=== PATIENT | male | born 1995 | race Caucasian/White ===

== ENCOUNTER 2022-09-28 00:42 | Emergency (ER) | payer MEDICAID, SELFPAY ==
--- NOTE | 2022-09-28 00:40 | ECG_ITS ---
APPROVED REPORT Exam: Resting ECG HR:64 bpm ECG Measurements Heart Rate 64 AXES MD 128 P 77 QRSd 94 QRS 97 QT 390 T 80 QTc 399 Conclusion SINUS RHYTHM BORDERLINE RIGHT AXIS DEVIATION [QRS AXIS > 90] BORDERLINE ECG UNCONFIRMED REPORT Electronically signed by : Quinn Waters MD 09/28/2022 20:19:15
[2022-09-28 00:42] VITALS: BP 129/76; PULSE 71; RESP 18; TEMP 36.8; O2SAT 98; BMI 23.4
--- NOTE | 2022-09-28 00:47 | XR_ITS ---
PROCEDURE INFORMATION: Exam: XR Chest Exam date and time: 09/28/2022 12:54 AM Age: 27 years old Clinical indication: Angina pectoris; Patient HX: Chest pain x2 hours; Additional info: Cp TECHNIQUE: Imaging protocol: Radiologic exam of the chest. Views: 2 views. COMPARISON: No relevant prior studies available. FINDINGS: Lungs: Unremarkable. No consolidation. Pleural spaces: Unremarkable. No pleural effusion. No pneumothorax. Heart/Mediastinum: Unremarkable. No cardiomegaly. Bones/joints: Unremarkable. IMPRESSION: No acute findings.
[2022-09-28 00:53] LABS: Basophils # 0.1 K/mm3 (0-0.2); Basophils % 1.3 % (0.1-2.0); Eosinophils # 0.3 K/mm3 (0.0-0.4); Eosinophils % 3.6 % (0.1-12.0); Hemoglobin 14.2 g/dL (14.1-18.0); Lymphocytes # 3.3 K/mm3 (0.7-4.5); Mean Corpuscular HGB Conc 32.3 g/dL (31.8-35.4); Mean Corpuscular Volume 92.9 fl (80-94); Mean Platelet Volume 8.6 fl (7.4-10.4); Monocytes # 0.7 K/mm3 (0.1-1.0); Monocytes % 7.6 % (1.7-9.3); Neutrophils # 4.3 K/mm3 (1.8-7.8); Neutrophils % 49.6 % (37.0-80.0); Platelet Count 264 K/mm3 (142-424); Red Blood Count 4.74 M/mm3 (4.60-6.20); Red Cell Distribution Width 14.5 % (11.5-17.5); White Blood Count 8.7 K/mm3 (4.8-10.8)
--- NOTE | 2022-09-28 00:54 | HMH.EDCP ---
Discharge Plan Disposition Chief Complaint: Chest Pain Clinical Impressions Clinical Impression: Atypical chest pain Instructions Patient Instructions: DI for Atypical Chest Pain Discharge ED Provider: Gurdeep Sutton Chest Pain HPI General Chief Complaint: Chest Pain Stated Complaint: CHEST PAIN Time Seen by Provider: 09/28/22 00:54 Mode of Arrival: Ambulatory Source of Information: Patient and Medical Record Limitations: No Limitations Description of Symptoms (Recalled from ER Triage Doc. by RN): pt c/o lt side chest pain radiating down lt arm that started 2 hours ago. History of Present Illness HPI narrative: acute onset of lt sided chest pain MD complaint: chest pain indicative of cardiac Onset (ago): hour(s) Duration: intermittent Pain location: substernal Severity: moderate Quality: sharp Pain radiation: LUE Relieving factors: nothing Risk Factors for CAD: Family Hx of CAD Treatments prior to or on arrival for Cardiac Chest Pain: none OLMAN Score for Non-Stemi Age of Patient: <30 years old Heart Rate: 50-69 bpm Systolic Blood Pressure: 120-139 mmhg Serum Creatinine: 0.40-0.79 mg/dl CHF Killip Class: I-No CHF Other Risk Factors: None Non-Stemi Risk Score: 41 Related Data Allergies Allergy/AdvReac Type Severity Reaction Status Date / Time INGREDIENT: NO KNOWN - NO Allergy Unknown Uncoded 10/18/17 15:13 KNOWN DRUG ALLERGY PFSH PFSH Social History Smoking Status: Current every day smoker alcohol intake: never current occupational status: employed Travel in the last 8 weeks: None ROS Obtained: Yes All systems reviewed & no additional complaints except as documented Physical Exam General General appearance: alert Head Head exam: normocephalic Eye Eye exam: Present PERRL and EOMI ENT ENT exam: Present mucous membranes moist Neck Neck exam: Present trachea midline Respiratory Respiratory exam: Present normal lung sounds bilaterally; Absent respiratory distress Cardiovascular Cardiovascular exam: Present regular rate; Absent systolic murmur Abdominal Exam Abdominal exam: Present soft; Absent tenderness or guarding Extremities Exam Extremities exam: Present full ROM Neurological Exam Neurological exam: Present alert, oriented X3 and CN II-XII intact Psychiatric Psychiatric exam: Present normal affect Skin Skin exam: Absent rash Medical Decision Making Medical Records Medical records reviewed: Yes I reviewed the patient's medical records. Shai Inquiry Pt receiving controlled substance: No Vital Signs: 09/28/22 00:42 Temperature 98.3 F Temperature Source Oral Pulse Rate [Right] 71 Respiratory Rate 18 Blood Pressure [Right Arm] 129/76 Blood Pressure Mean [Right Arm] 93 02 Sat by Pulse Oximetry 98 Lab Data Lab results reviewed: Yes I reviewed the patient's lab results. Lab Results 09/28/22 00:44: WBC 8.7, RBC 4.74, Hgb 14.2, Hct 44.0, MCV 92.9, MCH 30.0, MCHC 32.3, RDW 14.5, Plt Count 264, MPV 8.6, Neut % (Auto) 49.6, Lymph % (Auto) 38.0, Cooper % (Auto) 7.6, Eos % (Auto) 3.6, Baso % (Auto) 1.3, Neut # (Auto) 4.3, Lymph # (Auto) 3.3, Cooper # (Auto) 0.7, Eos # (Auto) 0.3, Baso # (Auto) 0.1 09/28/22 00:44: Sodium 139, Potassium 3.7, Chloride 105, Carbon Dioxide 28, Anion Gap 9.7, BUN 12, Creatinine 0.70, Estimated Creat Clear 177, Estimated GFR 136, Est GFR ( Amer) 165, Glucose 91, Calcium 9.1, Total Bilirubin 0.3, AST 24, ALT 15, Alkaline Phosphatase 67, Troponin I < 0.01, Total Protein 6.9, Albumin 4.4, Globulin 2.5, Albumin/Globulin Ratio 1.8 Result diagrams: 09/28/22 00:44 09/28/22 00:44 Orders (Tests/Meds): ED MEDICATIONS Generic Name Dose Route Start Last Admin Trade Name Freq PRN Reason Stop Dose Admin Sodium Chloride 8 ml 09/28/22 00:47 Sodium Chloride 0.9% 10ml Vial IV 10/28/22 00:46 NEEDED PRN dilute pepcid Discontinued Medications Generic Name Dose Route Start Last Admin Trade Name
[2022-09-28 00:56] LABS: Chloride 105 mmol/L (98-107); Potassium 3.7 mmoL/L (3.5-5.1); Sodium 139 mmol/L (136-145)
[2022-09-28 00:59] LABS: Alanine Aminotransferase 15 U/L (12-78); Albumin Level 4.4 g/dl (3.5-5.0); Albumin/Globulin Ratio 1.8 (1.1-1.8); Alkaline Phosphatase 67 U/L (38-126); Anion Gap 9.7 mEq/L (5-15); Aspartate Amino Transferase 24 U/L (17-59); Bilirubin,Total 0.3 mg/dl (0.2-1.3); Blood Urea Nitrogen 12 mg/dl (9-20); Carbon Dioxide 28 mmol/L (22.0-30.0); Creatinine Clearance Estimated 177 mL/min (50-200); Estimated Glomerular Filt Rate 136 ml/min (>60); GFR (African American) 165 ML/MIN (>60); Globulin 2.5 g/dL (1.3-3.2); Total Protein,Serum 6.9 g/dl (6.3-8.2)
[2022-09-28 01:00] LABS: Calcium 9.1 mg/dl (8.4-10.2); Glucose 91 mg/dl (74-100)
[2022-09-28 01:16] LABS: Troponin I < 0.01 ng/ml (0.00-0.034)
[2022-09-28 01:30] VITALS: BP 118/66; PULSE 61; O2SAT 97
[2022-09-28 02:00] VITALS: BP 127/66; PULSE 61; O2SAT 97
[2022-09-28 02:28] VITALS: BP 125/65; PULSE 62; PULSE 73; RESP 18; TEMP 36.6; O2SAT 99
== END 2022-09-28 02:35 | disposition home or self-care (01) ==
PROVIDERS: Emergency Provider Emergency Medicine
DX: R07.2 Precordial pain (principal); M79.602 Pain in left arm; F17.200 Nicotine dependence, unspecified, uncomplicated; Z82.49 Family history of ischemic heart disease and other diseases of the circulatory system
CPT/HCPCS: 71046; 80053; 84484; 85025; 93005; 96361; 96374; 96375; 99284

== ENCOUNTER 2024-06-15 08:00 | Emergency (ER) | payer SELFPAY ==
[2024-06-15 08:08] VITALS: BP 134/94; PULSE 116; RESP 20; TEMP 37.2; O2SAT 99; BMI 21.9
[2024-06-15 08:15] VITALS: BP 136/90; PULSE 107; O2SAT 97
[2024-06-15] MEDS: AMOXICILLIN/CLAVULANATE POTASSIUM 875/125MG TABLET 1 EACH PO (08:21)
[2024-06-15 08:31] VITALS: BP 136/90; PULSE 107; RESP 20; TEMP 37.2; O2SAT 97
--- NOTE | 2024-06-15 08:31 | ED_ITS ---
Discharge Plan Disposition Patient Disposition: Home, Self-Care Prescriptions Prescriptions: New amoxicillin-pot clavulanate 875-125 mg tablet 1 tab PO BID 10 Days Qty: 20 0RF Referrals Follow up/Referrals: Provider,Referral, MD [Primary Care Provider] - See instructions Activity Restrictions/Add. Instructions Additional Instructions/Restrictions: Call your family doctor to establish care for this visit to the emergency department and schedule follow-up within 48 hours to ensure improvement. If you have any worsening of your condition or any other concerning signs or symptoms, return to the emergency department or your primary care doctor for further evaluation. Call dentistry with the number provided to schedule follow-up. Also follow-up with telephonic case manager/social work with the forms you were given in order to figure out insurance coverage. Clinical Impressions Clinical Impression: Dental infection Print Language Print Language: South Korean Discharge ED Provider: Omid Diego General Adult HPI General Chief complaint: Dental/Oral Stated complaint: abscess tooth left side Time Seen by Provider: 06/15/24 08:15 Mode of Arrival: Ambulatory Source of Information: Patient Limitations: No Limitations Description of Symptoms (Recalled from ER Triage Doc. by RN): pt reports L lower molar pain that started yesterday. pt states he woke up with a golf ball abcess on the L. pt has broken dental caries in the last 2 lower molars. pt states he does not have dental insurance at this time but is trying to get on medicaid. History of Present Illness HPI narrative: Please note that above description of symptoms, in this electronic medical record under categorization of recalled from ER triage doctor by RN are reflective of an initial nursing assessment, however, is not reflective of my full history and physical exam that was personally taken and clarified. Consequentially, this preceding description of symptoms, which may include the patient's categorized chief complaint in the EMR, do not reflect my personal clinical impression, and the ultimate description of history of present illness and patient stated complaints should be deferred to this section of the note. Unless stated otherwise or congruent with this section of the note, additional signs, symptoms, or incongruence should be interpreted as inaccurate with my clinical impression. Related Data Previous Rx's ?Medication ?Instructions ?Recorded amoxicillin 875 mg-potassium 1 tab PO BID 10 days #20 tabs 06/15/24 clavulanate 125 mg tablet Allergies Allergy/AdvReac Type Severity Reaction Status Date / Time codeine Allergy Nose Bleed Verified 06/15/24 08:31 green beans Allergy Anaphylaxis Uncoded 06/15/24 08:31 [facility] Disclaimer: The information contained in this section may have been updated after the patient was seen, as this information can be updated by other users. Social History (Updated 09/28/22 @ 02:28 by Gurdeep Sutton MD) Smoking Status: Light tobacco smoker alcohol intake: never current occupational status: employed Travel in the last 8 weeks: None ROS Obtained: Yes All systems reviewed & no additional complaints except as documented Physical Exam General General appearance: alert Head Head exam: atraumatic and normocephalic Eye Eye exam: Present normal appearance, PERRL and EOMI Neck Neck exam: Present normal inspection, full ROM and trachea midline Respiratory Respiratory exam: Absent respiratory distress, wheezes, stridor, accessory muscle use or prolonged expiratory phase Cardiovascular Cardiovascular exam: Present other (Pulses equal symmetric in upper and lower extremities) Abdominal Exam Abdominal exam: Present soft; Absent distention, tenderness or pulsatile mass Extremities Exam Extremities exam: Absent edema Neurological Exam Neurological exam: Present alert, oriented X3 and CN II-XII intact; Absent motor sensory deficit Skin Skin exam: Present warm and dry; Absent diaphoresis or erythema Medical Decision Making Medical Records Medical records reviewed: Yes I reviewed the patient's medical records. Shai Inquiry Pt receiving controlled substance: No Shai was queried for this patient: No Vital Signs: 06/15/24 08:08 06/15/24 08:15 06/15/24 08:31 Temperature 98.9 F 98.9 F Temperature Source Oral Oral Pulse Rate 107 H 107 H Pulse Rate [Left] 116 H Respiratory Rate 20 20 Blood Pressure 136/90 136/90 Blood Pressure [Right Arm] 134/94 H Blood Pressure Mean [Right Arm] 107 Blood Pressure Source [Right Arm] Automatic Cuff Blood Pressure Position [Right Arm] Sitting 02 Sat by Pulse Oximetry 99 97 Oxygen Delivery Method Room Air Room Air Orders (Tests/Meds): ED MEDICATIONS Generic Name Dose Route Start Last Admin Trade Name Freq PRN Reason Stop Dose Admin Benzocaine/Butamben/Tetracaine HCl 10 gm 06/15/24 08:33 06/15/24 08:39 Tetracaine/Benzocaine/Butamben 56 Gm [place] TP 07/15/24 08:32 10 gm NEEDED PRN Administration pain dental Discontinued Medications Generic Name Dose Route Start Last Admin Trade Name Loli PRN Reason Stop Dose Admin Amoxicillin/Clavulanate Potassium 1 each 06/15/24 08:15 06/15/24 08:21 Amoxicillin/Clavulanate Potassium 875/125mg Tablet PO 06/15/24 08:16 1 each ONCE ONE Administration Lidocaine HCl 15 ml 06/15/24 08:32 06/15/24 08:39 Lidocaine 2% Viscous Lotus 15ml Udc PO 06/15/24 08:33 15 ml ONCE ONE Administration Medical Decision Narrative: 29-year-old male history of dental caries, numerous dental fractures presenting with dental pain and facial swelling. Started this morning, woke up with it. No fevers or chills, difficulty swallowing, voice changes, difficulty or pain range of motion neck, or any other concerns. States he took ibuprofen, it helped mildly. Lost his insurance recently currently trying to figure out insurance coverage. Pain is mild to moderate intensity, nothing other than applying pressure makes it worse. History was obtained via conversation with patient. On arrival, patient hemodynamically stable, alert, oriented x4, appropriate, GCS 15, moving all extremities spontaneously, pupils equal and reactive to light. Full physical exam performed and significant for left-sided facial swelling. No range of motion of neck difficulties. No stridor, no trismus, able to open jaw, no TMJ tenderness. No outward signs of swelling, deformity, tongue elevation, anterior neck swelling, or any other concerns. Differential includes. Buccal abscess, soft tissue swelling, among others. Patient was given dental balls. Because on physical exam, there is no drainable fluid collection, fluctuance, abscess, procedural drainage was not deemed necessary at this time. First dose of Augmentin was given here. Information regarding [facility] was also given. Regarding social determinants of health, social work was contacted here from the emergency department consulted, they gave patient information he is able to fill out and bring back and they will help him obtain insurance. Augmentin sent to pharmacy. Because patient at baseline without signs or symptoms of clinical decompensation, deemed appropriate for discharge. Results were relayed to patient who voiced understanding and were agreeable to outpatient management and follow up. I discussed my clinical impression with patient and answered all questions. At this time, the evidence for any other entities in the differential is insufficient to warrant any further testing or ED observation. This was explained as well. Advisory was given that persistent or worsening symptoms require further evaluation. I confirmed the understanding of this discussion. Roads Supervisor disclaimer Much of this encounter note is an electronic desktop support associate spoken language to printed text. Electronic desktop support associate of the spoken language may permit errors. Although I have reviewed the note, some errors may still exist. Critical Care Critical Care Time Critical Care Time: No
[2024-06-15] MEDS: TETRACAINE/BENZOCAINE/BUTAMBEN 56 GM SPRAY 10 GM TP (08:39)
[2024-06-15] MEDS: LIDOCAINE 2% VISCOUS SOL 15ML UDC 15 ML PO (08:39)
== END 2024-06-15 08:58 | disposition home or self-care (01) ==
PROVIDERS: Emergency Provider Emergency Medicine
DX: K04.7 Periapical abscess without sinus (principal); Z59.7 Insufficient social insurance and welfare support
CPT/HCPCS: 99283

== ENCOUNTER 2024-08-22 13:38 | Emergency (ER) | payer SELFPAY ==
[2024-08-22 13:55] VITALS: BP 129/67; PULSE 67; RESP 20; TEMP 36.6; O2SAT 98; BMI 23.7
--- NOTE | 2024-08-22 14:10 | EXP.UTC ---
Discharge Plan Disposition Patient Disposition: Home, Self-Care Condition: Good Prescriptions Prescriptions: No Action No Known Home Medications Referrals Follow up/Referrals: Provider,Referral, MD [Primary Care Provider] - See instructions Activity Restrictions/Add. Instructions Additional Instructions/Restrictions: covid swab was sent to lab. self isolate until test results are known to be negative No sign of a bacterial infection. Likely viral. Viruses can take 7-14 days to run their course. Nasal saline and bulb syringe or nose Nazanin to remove nasal drainage to help with nasal congestion. Hard to eat, drink, sleep with nasal congestion so important to keep this cleaned out. Monitor temp. Tylenol or Motrin as needed for pain or fever Encourage fluids, water, Gatorade, Powerade, Pedialyte if /toddler/child Warm salt water gargles Warm fluids Sore throat lozenges Sleep elevated Humidifier/vaporizer Follow-up immediately for new or worsening symptoms or no noticeable improvement over the next 48-72 hours. Clinical Impressions Clinical Impression: COVID-19 Instructions Patient Instructions: DI for COVID-19 (Suspected or Confirmed ) Print Language Print Language: Syriac Discharge ED Provider: Richi ([facility])Shef[place] [facility] [place] General Stated complaint: + home covid tests (2) Mode of Arrival: Ambulatory Source of Information: Patient Limitations: No Limitations Time Seen by Provider: 08/22/24 14:07 Description of Symptoms (Recalled from Triage Doc. by RN): PATIENT C/O BODY ACHES AND HEADACHE SINCE YESTERDAY. HE REPORTS 2 POSITIVE HOME COVID TESTS AND STATES HE NEEDS A TEST FOR WORK HEENT Symptoms (Recalled from RN notes): Yes Resp Symptoms (Recalled from RN notes): No Skin Symptoms (Recalled from RN notes): No MS Symptoms (Recalled from RN notes): No Functional Status (Recalled from RN notes): WNL History of Present Illness Provider Complaint: 29-year-old male presents for COVID testing. Patient states he did 2 at home COVID test that were positive. Patient complains of bodyaches, nausea, and headache since yesterday Related Data Home Medications ?Medication ?Instructions ?Recorded ?Confirmed No Known Home Medications 08/22/24 08/22/24 Allergies Allergy/AdvReac Type Severity Reaction Status Date / Time codeine Allergy Nose Bleed Verified 06/15/24 08:31 green beans Allergy Anaphylaxis Uncoded 06/15/24 08:31 Worker's Comp Is this a Worker's Comp case?: No [facility] Disclaimer: The information contained in this section may have been updated after the patient was seen, as this information can be updated by other users. 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) Smoking Status: Light tobacco smoker alcohol intake: never current occupational status: employed Travel in the last 8 weeks: None ROS Obtained: Yes Systems reviewed as appropriate & no additional complaints except as documented Physical Exam General General appearance: alert and in no apparent distress Eye Eye exam: Present normal appearance and PERRL ENT ENT exam: Present normal exam Respiratory Respiratory exam: Present normal lung sounds bilaterally Cardiovascular Cardiovascular exam: Present regular rate and normal rhythm Neurological Exam Neurological exam: Present alert and oriented X3 Skin Skin exam: Present warm and intact Medical Decision Making Medical Records Medical records reviewed: Yes I reviewed the patient's medical records. Screening: Per USPSTF and CDC recommendations, given the prevalence of disease in our region, it is our hospital?s policy to screen for HIV and viral Hepatitis for all patients aged 18 and over and those with ongoing risk factors. Shai Inquiry Pt receiving controlled substance: No Shai was queried for this patient: No Vital Signs: 08/22/24 13:55 Temperature 97.9 F Temperature Source Oral Pulse Rate [Left Brachial] 67 Respiratory Rate 20 Blood Pressure [Left Arm] 129/67 Blood Pressure Mean [Left Arm] 87 Blood Pressure Source [Left Arm] Automatic Cuff Blood Pressure Position [Left Arm] Sitting 02 Sat by Pulse Oximetry 98 Oxygen Delivery Method Room Air Orders (Tests/Meds): ORDERS Category Date Time Status Covid-19 Nasal PCR ([facility]) Routine Lab 08/22/24 13:45 Received
[2024-08-22 14:13] VITALS: BP 129/67; PULSE 67; RESP 20; TEMP 36.6; O2SAT 98
== END 2024-08-22 14:16 | disposition home or self-care (01) ==
PROVIDERS: Emergency Provider Nurse Practitioner Family
DX: U07.1 COVID-19 (principal)
CPT/HCPCS: 87635; 99213; G0381

== ENCOUNTER 2025-01-13 18:53 | Emergency (ER) | payer SELFPAY ==
[2025-01-13 18:57] VITALS: PULSE 96; RESP 18; TEMP 37; O2SAT 100; BMI 25.0
--- NOTE | 2025-01-13 19:17 | PC.NURSE ---
Gave the patient a pillow to rest his sore arm on.
--- NOTE | 2025-01-13 19:21 | ED_ITS ---
<Statement entered by Mauricio Castro MD - 01/13/25 23:10> I was consulted by the LEXI, and we discussed the complexity of the problems being addressed. I approved the treatment and management plan for this patient's care in the emergency department, thus performing a substantive portion of the medical decision making. Mauricio Castro MD, OLVIN, FACEP Discharge Plan Disposition Patient Disposition: Home, Self-Care Condition: Good Prescriptions Prescriptions: No Action No Known Home Medications Referrals Follow up/Referrals: Puneet Rodriguez DO [Staff Physician] - See instructions Provider,Referral, [Primary Care Provider] - See instructions Activity Restrictions/Add. Instructions Additional Instructions/Restrictions: Please follow-up with your primary care provider for further evaluation and lab draws Clinical Impressions Clinical Impression: Encounter for medical assessment, Does not have primary care provider Print Language Print Language: Panamanian Discharge ED Provider: Mauricio Castro General Adult HPI General Chief complaint: Recheck/Abnormal Lab/Rx Stated complaint: Wants to be tested for Hepatitis B&C Time Seen by Provider: 01/13/25 19:08 Mode of Arrival: Ambulatory Source of Information: Patient Description of Symptoms (Recalled from ER Triage Doc. by RN): Pt is requesting to have his blood tested after being exposed to hep b/hep c on tuesday. History of Present Illness HPI narrative: patient is an asymptomatic, 29-year-old male, no significant PMHx who presents to the ED requesting hepatitis and HIV testing. Patient states that last Tuesday his mother cut her arm and states that her blood got on his arm, advises that she is positive for hep B and hep C. Related Data Home Medications ?Medication ?Instructions ?Recorded ?Confirmed No Known Home Medications 08/22/24 08/22/24 Allergies Allergy/AdvReac Type Severity Reaction Status Date / Time codeine Allergy Nose Bleed Verified 06/15/24 08:31 green beans Allergy Anaphylaxis Uncoded 06/15/24 08:31 [facility] Disclaimer: The information contained in this section may have been updated after the patient was seen, as this information can be updated by other users. 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) Smoking Status: Current every day smoker alcohol intake: never current occupational status: employed Travel in the last 8 weeks: None Have you lived/traveled outside [place] in past 30 days?: No Contact w/someone who lives/traveled outside [place] past 30 days?: No Exposure to someone with infectious disease in past 14 days?: No Do you have a fever (greater than 100.4 F or 38 C)?: No Have you tested positive for COVID-19: No Exposed to someone with COVID-19 in past 14 days?: No Do you have a sore throat?: No Do you have a cough?: No Do you have any weakness?: No Do you have any diarrhea?: No Are you experiencing any unusual bleeding?: No Do you have any muscle aches/pain?: No Do you have any abdominal pain?: No Are you experiencing loss of taste or smell?: No ROS Obtained: Yes Systems reviewed as appropriate & no additional complaints except as documented Physical Exam General General appearance: alert and in no apparent distress Head Head exam: atraumatic Respiratory Respiratory exam: Absent respiratory distress Cardiovascular Cardiovascular exam: Present regular rate Neurological Exam Neurological exam: Present alert and oriented X3 Skin Skin exam: Present warm and dry Medical Decision Making Medical Records Screening: Per USPSTF and CDC recommendations, given the prevalence of disease in our region, it is our hospital?s policy to screen for HIV and viral Hepatitis for all patients aged 18 and over and those with ongoing risk factors. Shai Inquiry Pt receiving controlled substance: No Shai was queried for this patient: No Vital Signs: 01/13/25 18:57 Temperature 98.6 F Temperature Source Temporal Artery Scan Pulse Rate [Right] 96 H Respiratory Rate 18 Blood Pressure Source [Right Arm] Automatic Cuff Blood Pressure Position [Right Arm] Sitting 02 Sat by Pulse Oximetry 100 Oxygen Delivery Method Room Air Orders (Tests/Meds): ORDERS Category Date Time Status HIV Combo Stat Lab 01/13/25 19:20 Ordered Hepatitis Panel Stat Lab 01/13/25 19:19 Ordered Medical Decision Narrative: In summary, patient is an asymptomatic, 29-year-old male, no significant PMHx who presents to the ED requesting hepatitis and HIV testing. Patient states that last Tuesday his mother cut her arm and states that her blood got on his arm, advises that she is positive for hep B and hep C. Patient requesting hepatitis and HIV testing at this time. I discussed with the patient that it is too early for his labs to be reflective of any serial conversion however patient is insistent on having labs drawn tonight. Advised him he will need to have additional testing by primary care provider. Upon initial evaluation patient is alert, oriented and cooperative. He is hemodynamically stable. Physical exam is unremarkable. Patient was discharged home in stable condition after labs drawn. No further workup needed at this time. Critical Care Critical Care Time Critical Care Time: No
[2025-01-13 19:38] VITALS: BP 136/78; PULSE 96; RESP 16; TEMP 37; O2SAT 100
[2025-01-13 19:39] VITALS: BP 130/78; PULSE 96; RESP 18; TEMP 37; O2SAT 100
[2025-01-13 20:43] LABS: HIV Combo NEGATIVE (Negative)
[2025-01-15 06:49] LABS: HBsAg Screen Negative (Negative); HCV Ab Non Reactive (Non Reactive); Hep A Ab, IGM Negative (Negative); Hep B Core Ab, IgM Negative (Negative)
== END 2025-01-13 19:39 | disposition home or self-care (01) ==
PROVIDERS: Nurse Practitioner; Emergency Provider Student in an Organized Health Care Education/Training Program
DX: Z00.00 Encounter for general adult medical examination without abnormal findings (principal)
CPT/HCPCS: 80074; 86803; 87389; 99283